=== PATIENT | female | born 1950 ===

== ENCOUNTER 2018-12-21 14:01 | Outpatient (REF) | payer MEDICARE, OTHER, SELFPAY ==
--- NOTE | 2018-12-21 13:40 | PAPFT_PTH ---
PATIENT: SENTHIL HENDRICKS LOC: [facility] U#:[id number] AGE/SX: 68/F ROOM: RE12/21/[address]: Nora Lema : 1950 BED: DIS: 12/21/2018 SPEC #: [id number] RECD: 12/21/18 17:59 STATUS: PASCUAL REManju #: [id number] RADHA: 12/21/18 13:[address]: Nora Lema DEPT: [facility] Cytology RECD BY: Silvia Oshea ENTERED: 12/21/18 18:00 SP TYPE: PAPFT DEVIN DR: Unknown,Unknown Tissues: 1 - CX/ENDOCX FOR PAP SMEARS Procedures: PAP THIN PREP/[facility] Screening HPV DNA PROBE Comments: [id number]
== END 2018-12-21 14:21 ==
LOC: LBN 14:01
PROVIDERS: Visit Provider Obstetrics & Gynecology Gynecology
DX: N81.4 Uterovaginal prolapse, unspecified (principal); R35.0 Frequency of micturition; Z12.4 Encounter for screening for malignant neoplasm of cervix; Z11.51 Encounter for screening for human papillomavirus (HPV)
CPT/HCPCS: 87077; 88142; 87086; 87186; 87624

== ENCOUNTER 2019-02-02 11:03 | Outpatient (REF) | payer MEDICARE, OTHER, SELFPAY | END 2019-02-02 11:23 | LOC: LBN 11:03 | PROVIDERS: Visit Provider Obstetrics & Gynecology Gynecology | DX: R30.0 Dysuria (principal) | CPT/HCPCS: 87077; 87086; 87186 ==

== ENCOUNTER 2019-02-21 16:14 | Outpatient (REF) | payer MEDICARE, OTHER, SELFPAY | END 2019-02-21 16:34 | LOC: LBN 16:14 | PROVIDERS: Visit Provider Obstetrics & Gynecology Gynecology | DX: R30.0 Dysuria (principal) | CPT/HCPCS: 87077; 87086; 87186 ==